=== PATIENT | female | born 1965 | race African-American/Black ===

== ENCOUNTER 2019-07-17 16:33 | Inpatient (IN) ==
[2019-07-17] MEDS ORDERED: ALBUTEROL/IPRATROPIUM 3 ML NEB RESP TX STA (17:13)
[2019-07-17] MEDS ORDERED: MORPHINE 4 MG/1 ML VIAL IV STA (17:13)
[2019-07-17] MEDS ORDERED: PIPERACILLIN/TAZOBACTAM 2.25 MG in SODIUM CHLORIDE 0.9% 100 ML IV STA (17:13)
[2019-07-17 17:55] LABS: Basophils % 0.3 % (0.0-0.8); Eosinophils % 0.1 % (0.00-10.9); Hematocrit 35.1 VOL% (35.7-47.0); Immature Granulocytes % 0.5 %; Immature Granulocytes Absolute 0.05 #; Lymphocytes # 0.2 10*3/uL (1.4-4.0); Mean Corpuscular HGB Conc 31.3 GM/DL (32-36); Mean Corpuscular Volume 93.6 FL (87-102); Mean Platelet Volume 10.2 FL (9.6-12.0); Monocytes % 0.6 % (1.7-12.7); Neutrophils % 96.5 % (38.7-73.9); Platelet Count 136 T/CUMM (130-400); Red Blood Count 3.75 MC/CUMM (3.8-5.5); Red Cell Distribution Width 17.7 % (9.3-17.3); White Blood Count 11.1 T/CUMM (4-12)
[2019-07-17] MEDS ORDERED: ONDANSETRON 4 MG/2 ML VIAL ONE (18:01)
[2019-07-17] MEDS ORDERED: ONDANSETRON 4 MG/2 ML VIAL IV STA (18:08)
[2019-07-17] MEDS ORDERED: hydrALAZINE 20 MG/1 ML VIAL IV STA (18:24)
[2019-07-17] MEDS ORDERED: hydrALAZINE 20 MG/1 ML VIAL IV PRN (18:24)
[2019-07-17 18:26] LABS: Band Neutrophils 1 % (0-10); Lymphocytes 2 % (20-55); Segmented Neutrophils 97 % (50-85); Total Cells Counted 100
[2019-07-17 18:27] LABS: Ovalocytes Few; Platelet Estimate Adequate; Tear Drop Cells Few
[2019-07-17 18:28] LABS: Hypochromasia Slight
[2019-07-17 18:41] LABS: Albumin 3.4 G/DL (3.4-5.0); Bilirubin,Total 0.4 MG/DL (0.2-1.0); Calcium 8.1 MG/DL (8.5-10.1); Osmolality,Calculated 278.2 MOS/KG (273-304); Total Protein 7.4 G/DL (6.4-8.3)
[2019-07-17] MEDS: ALBUTEROL/IPRATROPIUM 3 ML NEB RESP TX SCH (19:09)
[2019-07-17] MEDS: ONDANSETRON 4 MG/2 ML VIAL IV PRN (19:17)
[2019-07-17] MEDS: ISOSORBIDE MONONITRATE 30 MG TABLET PO SCH (21:39)
[2019-07-17] MEDS: VERAPAMIL SR 180 MG TABLET PO SCH (21:39)
[2019-07-17] MEDS: HEPARIN 5,000 UNIT/1 ML VIAL SUBCUT SCH (21:40)
[2019-07-18] MEDS: ALBUTEROL/IPRATROPIUM 3 ML NEB RESP TX SCH ×4 (01:01→20:22)
[2019-07-18] MEDS: MORPHINE 4 MG/1 ML VIAL IV PRN ×3 (01:08→22:09)
[2019-07-18] MEDS: PIPERACILLIN/TAZOBACTAM 3,375 MG in SODIUM CHLORIDE 0.9% 100 ML IV SCH ×3 (01:17→18:25)
[2019-07-18] MEDS: ONDANSETRON 4 MG/2 ML VIAL IV PRN ×3 (04:52→19:55)
[2019-07-18 05:25] LABS: Basophils % 0.1 % (0.0-0.8); Hematocrit 34.6 VOL% (35.7-47.0); Hemoglobin 10.9 GM/DL (12.0-16.0); Immature Granulocytes % 0.5 %; Immature Granulocytes Absolute 0.05 #; Lymphocytes # 0.4 10*3/uL (1.4-4.0); Lymphocytes % 4.1 % (21.3-54.2); Mean Corpuscular HGB Conc 31.5 GM/DL (32-36); Mean Corpuscular Volume 94.3 FL (87-102); Mean Platelet Volume 11.3 FL (9.6-12.0); Monocytes % 3.5 % (1.7-12.7); Neutrophils % 91.8 % (38.7-73.9); Platelet Count 161 T/CUMM (130-400); Red Blood Count 3.67 MC/CUMM (3.8-5.5); Red Cell Distribution Width 17.5 % (9.3-17.3); White Blood Count 10.3 T/CUMM (4-12)
[2019-07-18] MEDS: LEVOTHYROXINE 50 MCG TABLET PO SCH (05:43)
[2019-07-18] MEDS: LEVOTHYROXINE 200 MCG TABLET PO SCH (05:43)
[2019-07-18] MEDS: HEPARIN 5,000 UNIT/1 ML VIAL SUBCUT SCH ×3 (05:45→20:02)
[2019-07-18 05:47] LABS: Albumin 3.2 G/DL (3.4-5.0); Bilirubin,Total 0.5 MG/DL (0.2-1.0); Calcium 8.1 MG/DL (8.5-10.1); Total Protein 7.2 G/DL (6.4-8.3)
[2019-07-18 05:48] LABS: Osmolality,Calculated 283.1 MOS/KG (273-304)
[2019-07-18 06:16] LABS: ABG Base Excess -5.8 MMOL/L (-2.5-2.5); ABG HCO3 19.6 MMOL/L (20-26); ABG Oxygen Saturation 99.2 % (95-100); ABG PCO2 54.2 MM HG (35-48); ABG PH 7.223 (7.35-7.45); ABG TCO2 20.7 MMOL/L (23-27); Allen Test Positive; Pt O2 Delivery Device BIPAP
[2019-07-18 06:16] LABS: Band Neutrophils 1 % (0-10); Lymphocytes 4 % (20-55); Nucleated Red Blood Cells 1 (0-5); Segmented Neutrophils 93 % (50-85); Total Cells Counted 100
[2019-07-18 06:17] LABS: Hypochromasia 1+; Platelet Estimate Normal; Polychromasia Few
[2019-07-18 06:26] LABS: Thyroid Stimulating Hormone 6.77 uIU/ml (0.358-3.74)
[2019-07-18] MEDS ORDERED: CALCIUM ACETATE 667 MG CAPSULE PO SCH (08:00)
[2019-07-18] MEDS: carvediloL 3.125 MG TABLET PO SCH ×2 (08:28→16:17)
[2019-07-18] MEDS: PANTOPRAZOLE 40 MG TABLET PO SCH (08:28)
[2019-07-18] MEDS: SEVELAMER CARBONATE 800 MG TABLET PO SCH ×3 (08:28→16:17)
[2019-07-18] MEDS: POLYETHYLENE GLYCOL POWDER 17 GM PACK PO SCH (08:29)
[2019-07-18] MEDS: ISOSORBIDE MONONITRATE 30 MG TABLET PO SCH ×2 (08:29→20:01)
[2019-07-18] MEDS: PENTOXIFYLLINE 400 MG TABLET PO SCH (08:29)
[2019-07-18] MEDS: methylPREDNISolone SOD SUC 125 MG/2 ML VIAL IV SCH ×3 (08:43→19:58)
[2019-07-18] MEDS: MONTELUKAST 10 MG TABLET PO SCH (13:09)
[2019-07-18] MEDS ORDERED: guaiFENesin 200 MG/10 ML UDCUP PO PRN (15:19)
[2019-07-18] MEDS ORDERED: PERMETHRIN 5% CREAM 60 GM TUBE TOP SCH (15:30)
[2019-07-18] MEDS: ETELCALCETIDE IV SCH (16:17)
[2019-07-18] MEDS: CLOTRIMAZOLE/BETAMETHASONE CREAM 15 GM TUBE TOP SCH (20:01)
[2019-07-18] MEDS: BUDESONIDE/FORMOTEROL 160-4.5 INHALER 6 GM INH SCH (20:01)
[2019-07-18] MEDS: VERAPAMIL SR 180 MG TABLET PO SCH (20:01)
[2019-07-18] MEDS: AMMONIUM LACTATE 12% CREAM 140 GM TUBE TOP SCH (20:02)
[2019-07-18] MEDS: BUDESONIDE 0.5 MG/2 ML NEB RESP TX SCH (20:22)
[2019-07-18] MEDS: CALCIUM ACETATE 667 MG CAPSULE PO SCH (21:58)
[2019-07-19] MEDS: ALBUTEROL/IPRATROPIUM 3 ML NEB RESP TX SCH ×4 (01:02→20:03)
[2019-07-19] MEDS: PIPERACILLIN/TAZOBACTAM 3,375 MG in SODIUM CHLORIDE 0.9% 100 ML IV SCH ×3 (02:08→20:45)
[2019-07-19] MEDS: methylPREDNISolone SOD SUC 125 MG/2 ML VIAL IV SCH ×4 (02:08→20:34)
[2019-07-19 05:13] LABS: Basophils % 0.1 % (0.0-0.8); Hematocrit 33.3 VOL% (35.7-47.0); Hemoglobin 10.4 GM/DL (12.0-16.0); Immature Granulocytes % 0.8 %; Immature Granulocytes Absolute 0.09 #; Lymphocytes # 0.4 10*3/uL (1.4-4.0); Lymphocytes % 3.2 % (21.3-54.2); Mean Corpuscular HGB Conc 31.2 GM/DL (32-36); Mean Corpuscular Volume 93.5 FL (87-102); Mean Platelet Volume 10.5 FL (9.6-12.0); Monocytes % 2.9 % (1.7-12.7); NRBC # 0.05 10*3/uL; Platelet Count 180 T/CUMM (130-400); Red Blood Count 3.56 MC/CUMM (3.8-5.5); Red Cell Distribution Width 17.3 % (9.3-17.3); White Blood Count 11.2 T/CUMM (4-12)
[2019-07-19 05:28] LABS: Albumin 3.3 G/DL (3.4-5.0); Bilirubin,Total 0.6 MG/DL (0.2-1.0); Calcium 7.7 MG/DL (8.5-10.1); Osmolality,Calculated 285.8 MOS/KG (273-304); Total Protein 6.9 G/DL (6.4-8.3)
[2019-07-19] MEDS: HEPARIN 5,000 UNIT/1 ML VIAL SUBCUT SCH ×3 (05:40→20:36)
[2019-07-19] MEDS: LEVOTHYROXINE 200 MCG TABLET PO SCH (05:40)
[2019-07-19] MEDS: LEVOTHYROXINE 50 MCG TABLET PO SCH (05:40)
[2019-07-19 06:03] LABS: Lymphocytes 3 % (20-55); Platelet Estimate Decreased; Segmented Neutrophils 95 % (50-85); Total Cells Counted 100
[2019-07-19 06:04] LABS: Polychromasia Few
[2019-07-19] MEDS: BUDESONIDE 0.5 MG/2 ML NEB RESP TX SCH ×2 (07:40→20:03)
[2019-07-19] MEDS: SEVELAMER CARBONATE 800 MG TABLET PO SCH ×3 (08:45→16:41)
[2019-07-19] MEDS: MONTELUKAST 10 MG TABLET PO SCH (08:45)
[2019-07-19] MEDS: CALCIUM ACETATE 667 MG CAPSULE PO SCH ×3 (08:45→20:33)
[2019-07-19] MEDS: PANTOPRAZOLE 40 MG TABLET PO SCH ×2 (08:45→08:56)
[2019-07-19] MEDS: ASPIRIN EC 325 MG TABLET PO SCH (08:45)
[2019-07-19] MEDS: carvediloL 3.125 MG TABLET PO SCH ×2 (08:45→16:41)
[2019-07-19] MEDS: ISOSORBIDE MONONITRATE 30 MG TABLET PO SCH ×2 (08:45→20:33)
[2019-07-19] MEDS: POLYETHYLENE GLYCOL POWDER 17 GM PACK PO SCH (08:46)
[2019-07-19] MEDS: FLUTICASONE 50 MCG NASAL SPRAY 16 GM BOTTLE BOTH NARES SCH (08:55)
[2019-07-19] MEDS: AMMONIUM LACTATE 12% CREAM 140 GM TUBE TOP SCH ×2 (08:55→20:39)
[2019-07-19] MEDS: CLOTRIMAZOLE/BETAMETHASONE CREAM 15 GM TUBE TOP SCH ×2 (08:55→20:42)
[2019-07-19] MEDS: BUDESONIDE/FORMOTEROL 160-4.5 INHALER 6 GM INH SCH ×2 (08:56→20:42)
[2019-07-19] MEDS: ONDANSETRON 4 MG/2 ML VIAL IV PRN (10:09)
[2019-07-19] MEDS: MORPHINE 4 MG/1 ML VIAL IV PRN ×2 (11:27→20:37)
[2019-07-19] MEDS: PROMETHAZINE 25 MG TABLET PO PRN (13:43)
[2019-07-19] MEDS: ALBUTEROL 2.5 MG/3 ML NEB RESP TX PRN (14:21)
[2019-07-19] MEDS: guaiFENesin/DM ER 600-30 MG TABLET PO PRN (20:33)
[2019-07-19] MEDS: VERAPAMIL SR 180 MG TABLET PO SCH (20:33)
[2019-07-20] MEDS: MORPHINE 4 MG/1 ML VIAL IV PRN ×4 (01:06→20:30)
[2019-07-20] MEDS: ALBUTEROL/IPRATROPIUM 3 ML NEB RESP TX SCH ×3 (01:08→13:41)
[2019-07-20] MEDS: methylPREDNISolone SOD SUC 125 MG/2 ML VIAL IV SCH ×4 (02:50→20:26)
[2019-07-20] MEDS: LEVOTHYROXINE 50 MCG TABLET PO SCH (05:34)
[2019-07-20] MEDS: HEPARIN 5,000 UNIT/1 ML VIAL SUBCUT SCH ×3 (05:34→20:35)
[2019-07-20] MEDS: LEVOTHYROXINE 200 MCG TABLET PO SCH (05:34)
[2019-07-20] MEDS: BUDESONIDE 0.5 MG/2 ML NEB RESP TX SCH ×2 (07:40→19:43)
[2019-07-20] MEDS: PROMETHAZINE 25 MG TABLET PO PRN ×2 (07:48→16:10)
[2019-07-20] MEDS: POLYETHYLENE GLYCOL POWDER 17 GM PACK PO SCH (08:37)
[2019-07-20] MEDS: PIPERACILLIN/TAZOBACTAM 3,375 MG in SODIUM CHLORIDE 0.9% 100 ML IV SCH ×2 (08:38→20:40)
[2019-07-20] MEDS: MONTELUKAST 10 MG TABLET PO SCH (08:39)
[2019-07-20] MEDS: carvediloL 3.125 MG TABLET PO SCH (08:40)
[2019-07-20] MEDS: ISOSORBIDE MONONITRATE 30 MG TABLET PO SCH ×2 (08:40→20:35)
[2019-07-20] MEDS: PANTOPRAZOLE 40 MG TABLET PO SCH ×2 (08:40→08:43)
[2019-07-20] MEDS: PENTOXIFYLLINE 400 MG TABLET PO SCH (08:40)
[2019-07-20] MEDS: SEVELAMER CARBONATE 800 MG TABLET PO SCH ×3 (08:40→16:10)
[2019-07-20] MEDS: ASPIRIN EC 325 MG TABLET PO SCH (08:40)
[2019-07-20] MEDS: BUDESONIDE/FORMOTEROL 160-4.5 INHALER 6 GM INH SCH (08:41)
[2019-07-20] MEDS: AMMONIUM LACTATE 12% CREAM 140 GM TUBE TOP SCH ×2 (08:42→20:40)
[2019-07-20] MEDS: CLOTRIMAZOLE/BETAMETHASONE CREAM 15 GM TUBE TOP SCH ×2 (08:42→20:39)
[2019-07-20] MEDS: FLUTICASONE 50 MCG NASAL SPRAY 16 GM BOTTLE BOTH NARES SCH (09:04)
[2019-07-20] MEDS: CALCIUM ACETATE 667 MG CAPSULE PO SCH ×2 (12:16→16:11)
[2019-07-20] MEDS: ETELCALCETIDE IV SCH (16:53)
[2019-07-20] MEDS: ARFORMOTEROL 15 MCG/2 ML NEB RESP TX SCH (19:43)
[2019-07-20] MEDS: carvediloL 6.25 MG TABLET PO SCH (20:34)
[2019-07-20] MEDS: VERAPAMIL SR 180 MG TABLET PO SCH (20:34)
[2019-07-21] MEDS: MORPHINE 4 MG/1 ML VIAL IV PRN ×5 (00:56→20:32)
[2019-07-21] MEDS: methylPREDNISolone SOD SUC 125 MG/2 ML VIAL IV SCH ×4 (01:40→20:32)
[2019-07-21] MEDS: LEVOTHYROXINE 200 MCG TABLET PO SCH (05:35)
[2019-07-21] MEDS: LEVOTHYROXINE 50 MCG TABLET PO SCH (05:35)
[2019-07-21] MEDS: HEPARIN 5,000 UNIT/1 ML VIAL SUBCUT SCH ×3 (05:36→20:38)
[2019-07-21] MEDS: ARFORMOTEROL 15 MCG/2 ML NEB RESP TX SCH ×2 (07:38→19:22)
[2019-07-21] MEDS: BUDESONIDE 0.5 MG/2 ML NEB RESP TX SCH ×2 (07:38→19:20)
[2019-07-21] MEDS: PIPERACILLIN/TAZOBACTAM 3,375 MG in SODIUM CHLORIDE 0.9% 100 ML IV SCH ×2 (08:01→20:47)
[2019-07-21] MEDS: ASPIRIN EC 325 MG TABLET PO SCH (08:03)
[2019-07-21] MEDS: CALCIUM ACETATE 667 MG CAPSULE PO SCH ×3 (08:03→17:06)
[2019-07-21] MEDS: ONDANSETRON 4 MG/2 ML VIAL IV PRN ×3 (08:03→21:56)
[2019-07-21] MEDS: SEVELAMER CARBONATE 800 MG TABLET PO SCH ×3 (08:03→17:06)
[2019-07-21] MEDS: carvediloL 6.25 MG TABLET PO SCH ×2 (08:04→17:06)
[2019-07-21] MEDS: MONTELUKAST 10 MG TABLET PO SCH (08:04)
[2019-07-21] MEDS: PANTOPRAZOLE 40 MG TABLET PO SCH ×2 (08:04→08:06)
[2019-07-21] MEDS: ISOSORBIDE MONONITRATE 30 MG TABLET PO SCH ×2 (08:04→20:39)
[2019-07-21] MEDS: CLOTRIMAZOLE/BETAMETHASONE CREAM 15 GM TUBE TOP SCH ×2 (08:05→20:50)
[2019-07-21] MEDS: AMMONIUM LACTATE 12% CREAM 140 GM TUBE TOP SCH ×2 (08:06→20:40)
[2019-07-21] MEDS: POLYETHYLENE GLYCOL POWDER 17 GM PACK PO SCH (08:06)
[2019-07-21] MEDS: FLUTICASONE 50 MCG NASAL SPRAY 16 GM BOTTLE BOTH NARES SCH (10:32)
[2019-07-21] MEDS: VERAPAMIL SR 180 MG TABLET PO SCH (20:39)
[2019-07-22] MEDS: MORPHINE 4 MG/1 ML VIAL IV PRN ×4 (01:14→21:06)
[2019-07-22] MEDS: methylPREDNISolone SOD SUC 125 MG/2 ML VIAL IV SCH ×4 (02:24→21:04)
[2019-07-22] MEDS: HEPARIN 5,000 UNIT/1 ML VIAL SUBCUT SCH ×3 (05:30→20:59)
[2019-07-22] MEDS: LEVOTHYROXINE 200 MCG TABLET PO SCH (05:31)
[2019-07-22] MEDS: LEVOTHYROXINE 50 MCG TABLET PO SCH (05:31)
[2019-07-22 06:29] LABS: Basophils % 0.3 % (0.0-0.8); Eosinophils % 0.3 % (0.00-10.9); Hematocrit 38.3 VOL% (35.7-47.0); Hemoglobin 11.6 GM/DL (12.0-16.0); Immature Granulocytes Absolute 0.23 #; Lymphocytes # 0.7 10*3/uL (1.4-4.0); Lymphocytes % 5.8 % (21.3-54.2); Mean Corpuscular HGB Conc 30.3 GM/DL (32-36); Mean Corpuscular Volume 96.2 FL (87-102); Mean Platelet Volume 12.5 FL (9.6-12.0); NRBC # 0.46 10*3/uL; Neutrophils % 84.6 % (38.7-73.9); Platelet Count 192 T/CUMM (130-400); Red Blood Count 3.98 MC/CUMM (3.8-5.5); Red Cell Distribution Width 17.4 % (9.3-17.3); White Blood Count 11.5 T/CUMM (4-12)
[2019-07-22 06:48] LABS: Calcium 7.4 MG/DL (8.5-10.1)
[2019-07-22] MEDS: ARFORMOTEROL 15 MCG/2 ML NEB RESP TX SCH ×2 (07:52→20:08)
[2019-07-22] MEDS: BUDESONIDE 0.5 MG/2 ML NEB RESP TX SCH ×2 (07:52→20:08)
[2019-07-22] MEDS: ONDANSETRON 4 MG/2 ML VIAL IV PRN (08:05)
[2019-07-22] MEDS: POLYETHYLENE GLYCOL POWDER 17 GM PACK PO SCH (08:06)
[2019-07-22] MEDS: CALCIUM ACETATE 667 MG CAPSULE PO SCH ×3 (08:06→16:28)
[2019-07-22] MEDS: carvediloL 6.25 MG TABLET PO SCH ×2 (08:06→16:28)
[2019-07-22] MEDS: SEVELAMER CARBONATE 800 MG TABLET PO SCH ×3 (08:06→16:27)
[2019-07-22] MEDS: MONTELUKAST 10 MG TABLET PO SCH (08:07)
[2019-07-22] MEDS: ASPIRIN EC 325 MG TABLET PO SCH (08:07)
[2019-07-22] MEDS: ISOSORBIDE MONONITRATE 30 MG TABLET PO SCH ×2 (08:07→21:00)
[2019-07-22] MEDS: PANTOPRAZOLE 40 MG TABLET PO SCH (08:07)
[2019-07-22] MEDS: FLUTICASONE 50 MCG NASAL SPRAY 16 GM BOTTLE BOTH NARES SCH (08:11)
[2019-07-22] MEDS: CLOTRIMAZOLE/BETAMETHASONE CREAM 15 GM TUBE TOP SCH ×2 (08:11→21:00)
[2019-07-22] MEDS: AMMONIUM LACTATE 12% CREAM 140 GM TUBE TOP SCH ×2 (08:12→21:01)
[2019-07-22] MEDS: PIPERACILLIN/TAZOBACTAM 3,375 MG in SODIUM CHLORIDE 0.9% 100 ML IV SCH ×2 (08:16→21:13)
[2019-07-22] MEDS: PROMETHAZINE 25 MG TABLET PO PRN ×2 (10:53→20:59)
[2019-07-22] MEDS: guaiFENesin/DM ER 600-30 MG TABLET PO PRN (10:53)
[2019-07-22] MEDS: ALBUTEROL 2.5 MG/3 ML NEB RESP TX PRN (11:16)
[2019-07-22] MEDS ORDERED: PROMETHAZINE 25 MG/1 ML VIAL IM ONE (13:47)
[2019-07-22] MEDS: VERAPAMIL SR 180 MG TABLET PO SCH (21:00)
[2019-07-23] MEDS: methylPREDNISolone SOD SUC 125 MG/2 ML VIAL IV SCH ×4 (02:53→20:47)
[2019-07-23 04:52] LABS: Basophils % 0.3 % (0.0-0.8); Hematocrit 37.7 VOL% (35.7-47.0); Hemoglobin 11.7 GM/DL (12.0-16.0); Immature Granulocytes % 2.7 %; Immature Granulocytes Absolute 0.32 #; Lymphocytes # 0.6 10*3/uL (1.4-4.0); Mean Corpuscular Volume 95.2 FL (87-102); Mean Platelet Volume 10.8 FL (9.6-12.0); Monocytes % 4.6 % (1.7-12.7); NRBC # 0.49 10*3/uL; Neutrophils % 87.4 % (38.7-73.9); Platelet Count 271 T/CUMM (130-400); Red Blood Count 3.96 MC/CUMM (3.8-5.5); Red Cell Distribution Width 17.2 % (9.3-17.3); White Blood Count 11.9 T/CUMM (4-12)
[2019-07-23 05:09] LABS: Calcium 7.3 MG/DL (8.5-10.1); Osmolality,Calculated 300.4 MOS/KG (273-304)
[2019-07-23] MEDS ORDERED: CALCIUM GLUCONATE IV ONE (05:36)
[2019-07-23] MEDS ORDERED: SODIUM CHLORIDE 0.9% IV ONE (05:36)
[2019-07-23] MEDS: HEPARIN 5,000 UNIT/1 ML VIAL SUBCUT SCH ×3 (05:43→20:53)
[2019-07-23] MEDS: LEVOTHYROXINE 200 MCG TABLET PO SCH (05:43)
[2019-07-23] MEDS: LEVOTHYROXINE 50 MCG TABLET PO SCH (05:43)
[2019-07-23] MEDS: MORPHINE 4 MG/1 ML VIAL IV PRN (05:44)
[2019-07-23] MEDS: BUDESONIDE 0.5 MG/2 ML NEB RESP TX SCH ×2 (07:44→20:20)
[2019-07-23] MEDS: ARFORMOTEROL 15 MCG/2 ML NEB RESP TX SCH ×2 (07:44→20:20)
[2019-07-23] MEDS: FLUTICASONE 50 MCG NASAL SPRAY 16 GM BOTTLE BOTH NARES SCH (08:22)
[2019-07-23] MEDS: ISOSORBIDE MONONITRATE 30 MG TABLET PO SCH ×2 (08:22→21:49)
[2019-07-23] MEDS: FLUCONAZOLE 200 MG TABLET PO SCH (08:22)
[2019-07-23] MEDS: carvediloL 6.25 MG TABLET PO SCH ×2 (08:22→17:45)
[2019-07-23] MEDS: ASPIRIN EC 325 MG TABLET PO SCH (08:22)
[2019-07-23] MEDS: SEVELAMER CARBONATE 800 MG TABLET PO SCH ×3 (08:22→17:45)
[2019-07-23] MEDS: CALCIUM ACETATE 667 MG CAPSULE PO SCH ×3 (08:22→17:45)
[2019-07-23] MEDS: POLYETHYLENE GLYCOL POWDER 17 GM PACK PO SCH (08:23)
[2019-07-23] MEDS: CLOTRIMAZOLE/BETAMETHASONE CREAM 15 GM TUBE TOP SCH ×2 (08:23→21:49)
[2019-07-23] MEDS: MONTELUKAST 10 MG TABLET PO SCH (08:23)
[2019-07-23] MEDS: AMMONIUM LACTATE 12% CREAM 140 GM TUBE TOP SCH ×2 (08:23→23:21)
[2019-07-23] MEDS: PANTOPRAZOLE 40 MG TABLET PO SCH (08:23)
[2019-07-23] MEDS: PIPERACILLIN/TAZOBACTAM 3,375 MG in SODIUM CHLORIDE 0.9% 100 ML IV SCH (08:23)
[2019-07-23] MEDS: PENTOXIFYLLINE 400 MG TABLET PO SCH (08:23)
[2019-07-23] MEDS: SODIUM POLYSTYRENE SULFATE 15 GM/60 ML BOTTLE PO SCH ×2 (15:40→17:45)
[2019-07-23] MEDS: ETELCALCETIDE IV SCH (15:40)
[2019-07-23] MEDS: PROMETHAZINE 25 MG TABLET PO PRN ×2 (15:41→20:46)
[2019-07-23 17:42] LABS: Hepatitis B Core IgM Quant < 0.05 Index; Hepatitis B Surface Ag Quant 0.16 Index; Hepatitis B Surface Ag Result Negative (Negative); Hepatitis C Virus Ab Quant 0.11 Index; Hepatitis C Virus Ab Result Negative (Negative)
[2019-07-23] MEDS: VERAPAMIL SR 180 MG TABLET PO SCH (21:48)
[2019-07-24] MEDS: MORPHINE 4 MG/1 ML VIAL IV PRN ×2 (01:07→05:35)
[2019-07-24] MEDS: ONDANSETRON 4 MG/2 ML VIAL IV PRN (02:19)
[2019-07-24] MEDS: methylPREDNISolone SOD SUC 125 MG/2 ML VIAL IV SCH ×2 (02:22→08:36)
[2019-07-24] MEDS: LEVOTHYROXINE 50 MCG TABLET PO SCH (05:41)
[2019-07-24] MEDS: HEPARIN 5,000 UNIT/1 ML VIAL SUBCUT SCH (05:41)
[2019-07-24] MEDS: LEVOTHYROXINE 200 MCG TABLET PO SCH (05:41)
[2019-07-24 05:49] LABS: Calcium 7.3 MG/DL (8.5-10.1); Osmolality,Calculated 294.8 MOS/KG (273-304)
[2019-07-24 07:34] VITALS: BP 134/78
[2019-07-24] MEDS: BUDESONIDE 0.5 MG/2 ML NEB RESP TX SCH (08:13)
[2019-07-24] MEDS: ARFORMOTEROL 15 MCG/2 ML NEB RESP TX SCH (08:13)
[2019-07-24] MEDS: CALCIUM ACETATE 667 MG CAPSULE PO SCH (08:36)
[2019-07-24] MEDS: FLUCONAZOLE 200 MG TABLET PO SCH (08:37)
[2019-07-24] MEDS: PANTOPRAZOLE 40 MG TABLET PO SCH (08:37)
[2019-07-24] MEDS: POLYETHYLENE GLYCOL POWDER 17 GM PACK PO SCH (08:37)
[2019-07-24] MEDS: carvediloL 6.25 MG TABLET PO SCH (08:37)
[2019-07-24] MEDS: SEVELAMER CARBONATE 800 MG TABLET PO SCH (08:37)
[2019-07-24] MEDS: MONTELUKAST 10 MG TABLET PO SCH (08:37)
[2019-07-24] MEDS: ASPIRIN EC 325 MG TABLET PO SCH (08:37)
[2019-07-24] MEDS: AMMONIUM LACTATE 12% CREAM 140 GM TUBE TOP SCH (08:38)
[2019-07-24] MEDS: ISOSORBIDE MONONITRATE 30 MG TABLET PO SCH (08:38)
[2019-07-24] MEDS: FLUTICASONE 50 MCG NASAL SPRAY 16 GM BOTTLE BOTH NARES SCH (08:38)
[2019-07-24] MEDS: CLOTRIMAZOLE/BETAMETHASONE CREAM 15 GM TUBE TOP SCH (08:38)
== END 2019-07-24 10:52 | disposition home health service (06) | DRG 640 ==
LOC: EDUNIT# → EDBD → N.ED 16:33 → N.EDINP 18:07 → SUATTDRO 18:07 → N.CC 19:42 → N.5E 07-19 14:13
PROVIDERS: ADMIT Internal Medicine; ATTEND Internal Medicine Geriatric Medicine